=== PATIENT | female | born 1980 | race African-American/Black ===

== ENCOUNTER 2023-10-25 08:50 | Emergency (ER) | payer OTHER ==
[2023-10-25 08:58] VITALS: BP 101/68; PULSE 69; RESP 18; TEMP 98.2; BMI 31.3
== END 2023-10-25 10:30 | disposition left against medical advice (07) ==
LOC: JER 08:50
DX: L70.0 Acne vulgaris (principal)
CPT/HCPCS: 99281-25

== ENCOUNTER 2024-06-22 16:30 | Emergency (ER) | payer OTHER ==
[2024-06-22 17:00] VITALS: TEMP 99.5; BMI 34.2
[2024-06-22 19:04] LABS: HEMATOCRIT 38.8 % (32.4-45.2); HEMOGLOBIN 12.5 G/dL (10.7-15.3); MCH 28.3 pg (25.7-33.7); MCHC 32.3 g/dl (32.0-36.0); MEAN CELL VOLUME 87.7 fl (80-96); MEAN PLT VOLUME 10.5 fl (7.5-11.1); PLATELET COUNT 264.5 10^3/uL (134-434); RBC 4.42 10^6/uL (3.60-5.2); RDW 20.2 % (11.6-15.6); WHITE BLOOD COUNT 8.8 10^3/uL (4.0-10.8)
[2024-06-22 19:09] LABS: INR 0.96 (0.83-1.09)
[2024-06-22 19:10] LABS: PLATELET ESTIMATE ADEQUATE
[2024-06-22 19:12] LABS: ACTIVATED PTT 30.3 SECONDS (25.2-36.5)
[2024-06-22 19:18] LABS: ALBUMIN 3.8 g/dl (3.4-5.0); BILIRUBIN,TOTAL 0.4 mg/dl (0.2-1); CALCIUM 9.2 mg/dl (8.5-10.1); CREATININE 0.7 mg/dl (0.6-1.3); POTASSIUM 3.8 mmol/L (3.5-5.1)
[2024-06-22 20:43] LABS: N-TERMINAL BNP 59.4 pg/ml (5-125)
[2024-06-22 20:50] VITALS: BP 120/76; PULSE 79; RESP 18
== END 2024-06-22 21:00 | disposition left against medical advice (07) ==
LOC: FER 16:30
DX: I82.622 Acute embolism and thrombosis of deep veins of left upper extremity (principal); M79.89 Other specified soft tissue disorders; Z20.822 Contact with and (suspected) exposure to COVID-19
CPT/HCPCS: 0241U-QW; 36415; 71275-TC; 80053; 83880; 84484; 84703; 85027; 85610; 85730; 93005; 93971; 99285-25; Q9967

== ENCOUNTER 2024-06-28 20:49 | Observation (INO) | payer OTHER ==
[2024-06-28 21:06] VITALS: BMI 31.3
[2024-06-28 22:21] LABS: HEMATOCRIT 21.9 % (32.4-45.2); MCH 27.9 pg (25.7-33.7); MEAN CELL VOLUME 90.2 fl (80-96); MEAN PLT VOLUME 9.7 fl (7.5-11.1); PLATELET COUNT 196.4 10^3/uL (134-434); RBC 2.43 10^6/uL (3.60-5.2); RDW 20.7 % (11.6-15.6); WHITE BLOOD COUNT 11.2 10^3/uL (4.0-10.8)
[2024-06-28 22:28] LABS: HEMOGLOBIN 6.8 G/dL (10.7-15.3)
[2024-06-28] MEDS ORDERED: KETOROLAC TROMETHAMINE 30 MG/1 ML VIAL IVPUSH ONE (22:28)
[2024-06-28] MEDS ORDERED: METOCLOPRAMIDE HCL INJECTION 10 MG/2 ML VIAL IVPB STA (22:29)
[2024-06-28 22:46] LABS: ALBUMIN 3.1 g/dl (3.4-5.0); ALK PHOS 24 U/L (45-117); ANION GAP 7 mmol/L (4-13); BILIRUBIN,TOTAL 0.4 mg/dl (0.2-1); CALCIUM 8.4 mg/dl (8.5-10.1); CHLORIDE 107 mmol/L (98-107); CO2 23 mmol/L (21-32); GLUCOSE,RANDOM 106 mg/dl (74-106); POTASSIUM 3.8 mmol/L (3.5-5.1); SGOT/AST 12 U/L (15-37); SGPT/ALT 11 U/L (7-52); SODIUM 137 mmol/L (136-145); TOT PROT 5.6 g/dl (6.4-8.2)
[2024-06-29] MEDS ORDERED: DOCUSATE SODIUM 100 MG CAPSULE (FP) PO PRN (00:03)
[2024-06-29] MEDS ORDERED: ACETAMINOPHEN 325 MG TABLET (FP) PO PRN (00:03)
[2024-06-29 01:25] LABS: INR 1.58 (0.83-1.09); PROTHROMBIN TIME (PATIENT) 17.6 SEC (9.7-13.0)
[2024-06-29 05:58] VITALS: RESP 18
[2024-06-29 06:00] VITALS: BP 106/65; PULSE 81; TEMP 99
== END 2024-06-29 09:29 | disposition left against medical advice (07) ==
LOC: FER 20:49 → FM/S 23:20 → INTOOBSV 23:39 → FM/S 23:39 → UNDOADMOB 23:39
PROVIDERS: ADMIT Internal Medicine; ATTEND Internal Medicine
PROC: 30233N1 Transfusion of Nonautologous Red Blood Cells into Peripheral Vein, Percutaneous Approach (ICD-10-PCS; principal; 2024-06-28)
DX: D64.9 Anemia, unspecified (principal); N92.0 Excessive and frequent menstruation with regular cycle; Z79.01 Long term (current) use of anticoagulants; Z98.84 Bariatric surgery status; Z86.718 Personal history of other venous thrombosis and embolism; F17.210 Nicotine dependence, cigarettes, uncomplicated
CPT/HCPCS: 36415; 36430; 71045-TC-FY; 80053; 85027; 85610; 86850; 86900; 86901; 86922; 93005; 99285-25; G0378; P9058

== ENCOUNTER 2024-06-29 11:12 | Emergency (ER) | payer OTHER ==
[2024-06-29 11:19] VITALS: BP 95/67; PULSE 88; RESP 18; TEMP 98.7; BMI 33.6
[2024-06-29 13:17] LABS: HEMATOCRIT 25.6 % (32.4-45.2); HEMOGLOBIN 8.5 GM/dL (10.7-15.3); MCHC 33.3 g/dl (32.0-36.0); MEAN CELL VOLUME 87.2 fl (80-96); MEAN PLT VOLUME 10.3 fl (7.5-11.1); PLATELET COUNT 230 10^3/uL (134-434); RBC 2.94 M/mm3 (3.60-5.2); RDW 17.2 % (11.6-15.6); WHITE BLOOD COUNT 13.4 K/mm3 (4.0-10.0)
[2024-06-29 13:40] LABS: CHLORIDE 109 mmol/L (98-107); SODIUM 137 mmol/L (136-145)
[2024-06-29 13:42] LABS: ALBUMIN 2.8 g/dl (3.4-5.0); CALCIUM 8.1 mg/dL (8.5-10.1); CO2 22 mmol/L (21-32); GLUCOSE,RANDOM 144 mg/dL (74-106)
[2024-06-29 13:45] LABS: SGOT/AST 63 U/L (15-37); SGPT/ALT 22 U/L (13-61)
[2024-06-29 13:46] LABS: ANISOCYTOSIS 1+; CREATININE 1.1 mg/dL (0.55-1.3); MACROCYTOSIS 0; TARGET CELLS 3+
[2024-06-29 13:47] LABS: BILIRUBIN,TOTAL 0.5 mg/dL (0.2-1); TOT PROT 6.4 g/dl (6.4-8.2)
[2024-06-29 13:48] LABS: ALK PHOS 28 U/L (45-117)
[2024-06-29 13:55] LABS: ANION GAP 6 mmol/L (4-13); POTASSIUM 6.1 mmol/L (3.5-5.1)
== END 2024-06-29 16:55 | disposition left against medical advice (07) ==
LOC: JER 11:12
DX: N92.0 Excessive and frequent menstruation with regular cycle (principal); D64.9 Anemia, unspecified; R42 Dizziness and giddiness; R06.02 Shortness of breath
CPT/HCPCS: 36415; 80053; 84703; 85025; 99283-25